=== PATIENT | male | born 1970 | race Caucasian/White ===

== ENCOUNTER 2023-11-08 14:00 | Outpatient (OUT) | payer SELFPAY | END 2023-11-08 14:01 | disposition home or self-care (01) | LOC: PST 14:00 | PROVIDERS: Visit Provider Surgery | DX: Z01.818 Encounter for other preprocedural examination (principal); D50.9 Iron deficiency anemia, unspecified; R10.13 Epigastric pain ==

== ENCOUNTER 2023-11-16 06:31 | Day surgery (SDC) | payer OTHER, SELFPAY ==
--- OUTSIDE RECORDS SUMMARY | 2023-11-16 06:36 | XMS_ITS | CCD ---
Author Organization [facility] Care Team Providers Care Prop Drawer Name Role Phone Charito Beckford MD Primary Care Provider TONG NICHOLE Attending Unavailable CHARITO BECKFORD Referring Unavailable CHARITO BECKFORD Primary Care Unavailable CHARITO BECKFORD Attending Unavailable Medications Current Medications Medication Drug Class(es) Dates Sig (Normalized) Sig (Original) apixaban 5 mg oral tablet (3 sources) Factor Xa Inhibitor Start: 07-20-2023 End: 07-20-2023 take 1 tablet by mouth in the morning, then take 1 tablet by mouth at bedtime apixaban (ELIQUIS) 5 mg tablet Indications: Multiple subsegmental pulmonary emboli without acute cor pulmonale (CMS-HCC) Take 1 tablet (5 mg total) by mouth in the morning and 1 tablet (5 mg total) before bedtime. 60 tablet 2 07/20/2023 Active ferrous sulfate 325 mg oral tablet (1 source) Start: 07-21-2023 take 1 tablet by mouth in the morning, then take 1 tablet by mouth at mealtime ferrous sulfate 325 (65 FE) mg tablet Take 1 tablet (325 mg total) by mouth in the morning and 1 tablet (325 mg total) in the evening. Take with meals. 60 tablet 2 07/21/2023 Active Problems Active Problems Problem Classification Problem Date Documented Da te Episodic/Chronic Abdominal pain (1 source) Epigastric pain; Translations: [Epigastric pain] Onset: 10-18-2023 Episodic Deficiency and other anemia (1 source) Microcytic anemia; Translations: [Iron deficiency anemia, unspecified] 07-20-2023 Episodic Deficiency and other anemia (1 source) Iron deficiency anemia, unspecified; Translations: [Iron deficiency anemia, unspecified] Onset: 10-18-2023 Episodic Deficiency and other anemia (1 source) Anemia Onset: 10-18-2023 Episodic Pulmonary heart disease (1 source) Pulmonary embolism; Translations: [Multiple subsegmental pulmonary emboli without acute cor pulmonale] 07-20-2023 Episodic Unclassified (1 source) Multiple subsegmental pulmonary emboli without acute cor pulmonale; Translations: [Multiple subsegmental pulmonary emboli without acute cor pulmonale] Onset: 07-20-2023 Unclassified (1 source) New patient Onset: 07-20-2023 Past or Other Problems Problem Classification Problem Date Documented Da te Episodic/Chronic Mood disorders (2 sources) Mood disorders Onset: 07-20-2023 07-20-2023 Results Test Name Value Interpretation Reference Range Facil itchristophe CNOVon 01-11-2019 CNOV Office Visit (EXPUSQ) PINEDA GRACIA ([id number]) 1970 M Date Time Provider Department 01/11/19 11:45 AM TERESA HOLLIS) EXPUSQ During your visit today, we recorded the following information about you: Temperature Pulse Respiration Blood pressure 97.5 degrees 101/minute 18/minute 110/83 Weight 108.9 kg Teresa Hollis PA-C 01/11/2019 12:20 PM Signed HPI 48 yo healthy M presents with onset of diarrhea yesterday. 10 episodes of watery yellow/brown diarrhea throughout the day. 2-3 episodes today. Was in [place] for 3 days, returned 3 days ago. Drank their tap water and ate chicken and beef tortillas, veggies, and fruit. Also with nausea yesterday which has resolved today. Overall feeling weak. Drinking plenty of fluids, not eating much. Denies any abdominal pain, bloody or mucousy stools, vomiting, fever, chills, sweats, or lightheadedness. Hx of similar issues with traveling for which he has been treated with cipro with good relief. No recent antibiotics or hospitalizations. No OTC meds tried. ALLERGIES No Known Allergies No past medical history on file. No current outpatient medications on file. No current facility-administere d medications for this visit. Review of Systems Constitutional: Negative for chills, diaphoresis, fatigue and fever. Gastrointestinal: Positive for diarrhea and nausea (resolved today ). Negative for abdominal distention, abdominal pain, anal bleeding, blood in stool and vomiting. Musculoskeletal: Negative for myalgias. Neurological: Positive for weakness. Negative for dizziness and light-headedness. Physical Exam Constitutional: He appears well-developed and well-nourished. Non-toxic appearance. He does not have a sickly appearance. He does not appear ill. No distress. HENT: Head: Normocephalic and atraumatic. Mouth/Throat: Oropharynx is clear and moist. Mucous membranes are not dry. Eyes: Conjunctivae and EOM are normal. Neck: Normal range of motion. Cardiovascular: Regular rhythm, S1 normal, S2 normal and normal heart sounds. Tachycardia present. HR around 100 Pulmonary/Chest: Effort normal and breath sounds normal. No accessory muscle usage. No respiratory distress. Abdominal: Soft. Normal appearance. He exhibits no distension and no mass. Bowel sounds are increased. There is no tenderness. There is no rigidity and no guarding. Musculoskeletal: Normal range of motion. Neurological: He is alert. Skin: Skin is warm and dry. He is not diaphoretic. Psychiatric: He has a normal mood and affect. Vitals reviewed. BP 110/83 (BP Site: Left Arm, BP Position: Sitting, BP Cuff Size: Regular Adult) Pulse 101 Temp 36.4 ?C (97.5 ?F) (Oral) Resp 18 Wt 108.9 kg (240 lb) SpO2 97% ASSESSMENT/PLAN: 1. Traveler's diarrhea - ICD9: 009.2, ICD10: A09 - Onset of diarrhea yesterday after returning from [place]. Drank their water. 10 episodes of diarrhea yesterday, which has continued into today. No abdominal pain, fever, or bloody stools. Tolerating oral fluids well. Well appearing. Stable vitals - borderline tachy. Moist mucous membranes. Increased bowel sounds but abdomen is soft and non tender. Discussed supportive care with fluids and rest. Imodium prn. BRAT diet. Generally this resolves on it's own with just supportive care - discussed this with him but he is requesting antibiotics as he is traveling and suppose to leave for [place] tomorrow and the diarrhea is an inconvenience for his traveling plans. Discussed potential side effects of cipro such as tendon/ligament/join t issues, but usually occurring with prolonged use. Advised to follow up with his PCP in 3 days if not improving. ER for any abdominal pain, bloody stools, fever, or signs of dehydration discussed - CIPROFLOXACIN 500 MG TABLET EDWIN Serrano PA-C 01/11/2019 12:02 PM Signed Follow up with your doctor in 3 days if not improving Plenty of fluids Imodium as needed BRAT diet What is travelers' diarrhea?Traveler s' diarrhea is runny or watery bowel movements in people who are traveling. It is usually caused by bacteria but can also be caused by a virus or parasite. You are more likely to get travelers' diarrhea if you travel in: ?[place] (except [place] ?[place], and [place] ?Countries around the [place], including [place] What are the symptoms of travelers' diarrhea?The main symptom is runny or watery bowel movements. These usually start about 4 to 14 days after arriving. Other symptoms can include: ?Feeling sick ?Loss of appetite ?Cramps in the lower belly ?Nausea and vomiting ?Fever ?Gas and bloating ? Feeling like the belly is full, with pain in the middle or top of the belly. ?Blood in the bowel movements ?Feeling as though you need have a bowel movement even if you just did, or like you need to get to the toilet in a hurry Travelers' diarrhea usually lasts 1 to 5 days, but some people are sick for a week or longer. Should I see a doctor or nurse?If your doctor or nurse gave you antibiotics to take in case you got diarrhea, you can take them instead of going to a doctor or nurse in another country. But you might need to see a doctor or nurse if: ?You are sick for 10 to 14 days or longer ?You have a fever of 102?F (40?C) or higher ?You have severe belly pain ?You have bloody diarrhea ?The antibiotics you took did not help Will I need tests?Probably not. If you see a doctor or nurse, he or she will ask where you traveled and what you did. If the doctor thinks a certain type of bacteria or parasite might be causing the diarrhea, he or she might ask for a bowel movement sample. Testing the sample can sometimes show the cause of the diarrhea. But this is not usually needed. How is travelers' diarrhea treated?The most important treatment is getting enough fluid. That's because diarrhea can cause the body to lose fluid. Adults with mild diarrhea can drink lots of fluids with water, salt, and sugar. Soup broth and water mixed with juice are good choices. If you are drinking enough, your urine will look light yellow or almost clear. If you have very frequent diarrhea, you can drink an oral rehydration solution. You can buy this in a packet at the pharmacy. Mix it with bottled or boiled drinking water. Other treatments are not necessary for everyone. They might include: ?Antibiotics ? These medicines fight infections. ?Medicines that ease diarrhea ? These medicines include loperamide (brand name: Imodium), diphenoxylate-atropi ne (sample brand name: Lomotil), and bismuth subsalicylate (sample brand names: Pepto-Bismol, Kaopectate). They can help, but they can also cause other health problems. Bismuth salicylate might not be safe for women or people who take aspirin for another condition. You can take loperamide or diphenoxylate if you have mild diarrhea. If you have very bad diarrhea, you should only take loperamide or diphenoxylate if you are also taking antibiotics. You should stop loperamide or diphenoxylate if your symptoms get worse when you take them. Can travelers' diarrhea be prevented?You can reduce your chances of getting travelers' diarrhea by being careful about what and how you eat and drink. While you are traveling: ?Do not drink tap water. Drink bottled carbonated drinks, beer, wine, or hot tea or coffee instead. [place] your teeth with bottled water. ?Do not use ice in drinks. Ice is usually made from tap water. ?Do not eat food from carts or stands in the street. ?Do not eat sauces set out on restaurant tables. These include salsa and ketchup. ?Do not eat fresh foods at room temperature. These include guacamole, fruit or chicken salads, and buffet food on a steam table. ?Do not eat foods or drinks made with unpasteurized milk. ?Ask for drinks in the bottle, without ice. If you drink from a glass, use a straw. ?Do not eat fruits unless they have a peel and you have peeled them yourself. ?Make sure meat and seafood are well done and eggs have a firm yolk. If you can't find bottled water or soft drinks, you can make your drinking water safe by doing one of the following: ?Boiling it for 3 minutes (let it cool before drinking) ?Adding 5 drops of tincture of iodine to 4 cups of water and waiting 30 minutes ? Tincture of iodine is a liquid you can buy at most pharmacies or [employer] stores. ?Using a water treatment filter from a [employer] or [employer] store Wash your hands after going to the bathroom, changing diapers, blowing your nose, touching animals, or taking out the trash. If you have a serious health condition, travelers' diarrhea could cause you to lose too much water. This can be dangerous and even cause . If you are going on a trip, talk to your doctor or nurse ahead of time. He or she might give you antibiotics to take while you are traveling. BRAT DIET (may eat any of the following as tolerated) Bananas Applesauce [place] Saltine Crackers Animal Crackers Pretzels Oatmeal Unsweetened Dry Cereal (Rice Krispies, Cheerios) Plain Baked or Boiled Potato Plain White Rice Plain Noodles All clear liquid listed below CLEAR LIQUID DIET (need to drink 2 ounces total every half hour) Broth Jello Popsicles Pedialyte Gatorade NO Juices NO Milk NO Dairy Products Call if urine output is decreased or he develops dry mucous membranes, or lethargy. Referring Provider: SELF [[id number]] Allergies As of Date: 01/11/2019 (No Known Allergies) Date Reviewed: 01/11/2019 Reviewed by: Teresa Nevarez) Telma - Fully Assessed Reason for Visit: diarrhea/nausea [Other] Cmt: just came back into the [place] ago and issues started yesterday Reason For Visit History Recorded Primary Visit Diagnosis:Traveler's diarrhea [A09] Order(s):ciprofloxac in HCl (CIPRO) 500 mg tabletTake 1 tablet by mouth twice daily for 3 days.Disp: 6 tabletRfl: 0 Prescriptions as of 01/11/2019 Sig: CIPROFLOXACIN 500 MG TABLET Take 1 tablet by mouth twice * Problem List As Of Date: 01/11/2019 (None) Other instructions from your clinician: Follow up with your doctor in 3 days if not improving Plenty of fluids Imodium as needed BRAT diet What is travelers' diarrhea?Traveler s' diarrhea is runny or watery bowel movements in people who are traveling. It is usually caused by bacteria but can also be caused by a virus or parasite. You are more likely to get travelers' diarrhea if you travel in: ?[place] (except [place]) ?[place], and [place] ?Countries around the [place], including [place] ?[place] What are the symptoms of travelers' diarrhea?The main symptom is runny or watery bowel movements. These usually start about 4 to 14 days after arriving. Other symptoms can include: ?Feeling sick ?Loss of appetite ?Cramps in the lower belly ?Nausea and vomiting ?Fever ?Gas and bloating ? Feeling like the belly is full, with pain in the middle or top of the belly. ?Blood in the bowel movements ?Feeling as though you need have a bowel movement even if you just did, or like you need to get to the toilet in a hurry Travelers' diarrhea usually lasts 1 to 5 days, but some people are sick for a week or longer. Should I see a doctor or nurse?If your doctor or nurse gave you antibiotics to take in case you got diarrhea, you can take them instead of going to a doctor or nurse in another country. But you might need to see a doctor or nurse if: ?You are sick for 10 to 14 days or longer ?You have a fever of 102?F (40?C) or higher ?You have severe belly pain ?You have bloody diarrhea ?The antibiotics you took did not help Will I need tests?Probably not. If you see a doctor or nurse, he or she will ask where you traveled and what you did. If the doctor thinks a certain type of bacteria or parasite might be causing the diarrhea, he or she might ask for a bowel movement sample. Testing the sample can sometimes show the cause of the diarrhea. But this is not usually needed. How is travelers' diarrhea treated?The most important treatment is getting enough fluid. That's because diarrhea can cause the body to lose fluid. Adults with mild diarrhea can drink lots of fluids with water, salt, and sugar. Soup broth and water mixed with juice are good choices. If you are drinking enough, your urine will look light yellow or almost clear. If you have very frequent diarrhea, you can drink an oral rehydration solution. You can buy this in a packet at the pharmacy. Mix it with bottled or boiled drinking water. Other treatments are not necessary for everyone. They might include: ?Antibiotics ? These medicines fight infections. ?Medicines that ease diarrhea ? These medicines include loperamide (brand name: Imodium), diphenoxylate-atropi ne (sample brand name: Lomotil), and bismuth subsalicylate (sample brand names: Pepto-Bismol, Kaopectate). They can help, but they can also cause other health problems. Bismuth salicylate might not be safe for women or people who take aspirin for another condition. You can take loperamide or diphenoxylate if you have mild diarrhea. If you have very bad diarrhea, you should only take loperamide or diphenoxylate if you are also taking antibiotics. You should stop loperamide or diphenoxylate if your symptoms get worse when you take them. Can travelers' diarrhea be prevented?You can reduce your chances of getting travelers' diarrhea by being careful about what and how you eat and drink. While you are traveling: ?Do not drink tap water. Drink bottled carbonated drinks, beer, wine, or hot tea or coffee instead. [place] your teeth with bottled water. ?Do not use ice in drinks. Ice is usually made from tap water. ?Do not eat food from carts or stands in the street. ?Do not eat sauces set out on restaurant tables. These include salsa and ketchup. ?Do not eat fresh foods at room temperature. These include guacamole, fruit or chicken salads, and buffet food on a steam table. ?Do not eat foods or drinks made with unpasteurized milk. ?Ask for drinks in the bottle, without ice. If you drink from a glass, use a straw. ?Do not eat fruits unless they have a peel and you have peeled them yourself. ?Make sure meat and seafood are well done and eggs have a firm yolk. If you can't find bottled water or soft drinks, you can make your drinking water safe by doing one of the following: ?Boiling it for 3 minutes (let it cool before drinking) ?Adding 5 drops of tincture of iodine to 4 cups of water and waiting 30 minutes ? Tincture of iodine is a liquid you can buy at most pharmacies or [employer]. ?Using a water treatment filter from a [employer] or sports store Wash your hands after going to the bathroom, changing diapers, blowing your nose, touching animals, or taking out the trash. If you have a serious health condition, travelers' diarrhea could cause you to lose too much water. This can be dangerous and even cause . If you are going on a trip, talk to your doctor or nurse ahead of time. He or she might give you antibiotics to take while you are traveling. BRAT DIET (may eat any of the following as tolerated) Bananas Applesauce [place] Saltine Crackers Animal Crackers Pretzels Oatmeal Unsweetened Dry Cereal (Rice Krispies, Cheerios) Plain Baked or Boiled Potato Plain White Rice Plain Noodles All clear liquid listed below CLEAR LIQUID DIET (need to drink 2 ounces total every half hour) Broth Jello Popsicles Pedialyte Gatorade NO Juices NO Milk NO Dairy Products Call if urine output is decreased or he develops dry mucous membranes, or lethargy. Prescriptions ordered this encounter Disp Refills Start End CIPROFLOXACIN 500 MG TABLET 6 ta* 0 01/11/2019 01/14/2019 Route: ORAL Sig: Take 1 tablet by mouth twice daily for 3 days. Encounter Status:Closed by TERESA HOLLIS PAC on 01/11/19 [facility] PROGRESSon 01-11-2019 PROGRESS HNO ID: [id number] Author: Teresa Nevarez) Telma Service: ? Author Type: Physician Block Handler Type: Progress Notes Filed: 01/11/2019 12:20 PM Note Text: HPI 48 yo healthy M presents with onset of diarrhea yesterday. 10 episodes of watery yellow/brown diarrhea throughout the day. 2-3 episodes today. Was in [place] for 3 days, returned 3 days ago. Drank their tap water and ate chicken and beef tortillas, veggies, and fruit. Also with nausea yesterday which has resolved today. Overall feeling weak. Drinking plenty of fluids, not eating much. Denies any abdominal pain, bloody or mucousy stools, vomiting, fever, chills, sweats, or lightheadedness. Hx of similar issues with traveling for which he has been treated with cipro with good relief. No recent antibiotics or hospitalizations. No OTC meds tried. ALLERGIES No Known Allergies No past medical history on file. No current outpatient medications on file. No current facility-administere d medications for this visit. Review of Systems Constitutional: Negative for chills, diaphoresis, fatigue and fever. Gastrointestinal: Positive for diarrhea and nausea (resolved today ). Negative for abdominal distention, abdominal pain, anal bleeding, blood in stool and vomiting. Musculoskeletal: Negative for myalgias. Neurological: Positive for weakness. Negative for dizziness and light-headedness. Physical Exam Constitutional: He appears well-developed and well-nourished. Non-toxic appearance. He does not have a sickly appearance. He does not appear ill. No distress. HENT: Head: Normocephalic and atraumatic. Mouth/Throat: Oropharynx is clear and moist. Mucous membranes are not dry. Eyes: Conjunctivae and EOM are normal. Neck: Normal range of motion. Cardiovascular: Regular rhythm, S1 normal, S2 normal and normal heart sounds. Tachycardia present. HR around 100 Pulmonary/Chest: Effort normal and breath sounds normal. No accessory muscle usage. No respiratory distress. Abdominal: Soft. Normal appearance. He exhibits no distension and no mass. Bowel sounds are increased. There is no tenderness. There is no rigidity and no guarding. Musculoskeletal: Normal range of motion. Neurological: He is alert. Skin: Skin is warm and dry. He is not diaphoretic. Psychiatric: He has a normal mood and affect. Vitals reviewed. BP 110/83 (BP Site: Left Arm, BP Position: Sitting, BP Cuff Size: Regular Adult) Pulse 101 Temp 36.4 ?C (97.5 ?F) (Oral) Resp 18 Wt 108.9 kg (240 lb) SpO2 97% ASSESSMENT/PLAN: 1. Traveler's diarrhea - ICD9: 009.2, ICD10: A09 - Onset of diarrhea yesterday after returning from [place]. Drank their water. 10 episodes of diarrhea yesterday, which has continued into today. No abdominal pain, fever, or bloody stools. Tolerating oral fluids well. Well appearing. Stable vitals - borderline tachy. Moist mucous membranes. Increased bowel sounds but abdomen is soft and non tender. Discussed supportive care with fluids and rest. Imodium prn. BRAT diet. Generally this resolves on it's own with just supportive care - discussed this with him but he is requesting antibiotics as he is traveling and suppose to leave for [place] tomorrow and the diarrhea is an inconvenience for his traveling plans. Discussed potential side effects of cipro such as tendon/ligament/join t issues, but usually occurring with prolonged use. Advised to follow up with his PCP in 3 days if not improving. ER for any abdominal pain, bloody stools, fever, or signs of dehydration discussed - CIPROFLOXACIN 500 MG TABLET Teresa Hollis PA-C [facility] Vital Signs Date Time Vital Sign Value Performing Clinician Padmini patel 07-20-2023 09:44-0500 Body height 182.9 cm Charito Beckford MD Work Phone: [facility] 07-20-2023 09:44-0500 Body mass index (BMI) [Ratio] 33.5 kg/m2 Charito Beckford MD Work Phone: [facility] 07-20-2023 09:44-0500 Body weight 112.04 kg Charito Beckford MD Work Phone: [facility] 07-20-2023 09:44-0500 Diastolic blood pressure 79 mm[Hg] Charito Beckford MD Work Phone: [facility] 07-20-2023 09:44-0500 Heart rate 72 /min [facility] 07-20-2023 09:44-0500 Systolic blood pressure 114 mm[Hg] Charito Beckford MD Work Phone: [facility] Encounters Encounter Date Encounter Type Care Provider Facility Start: 10-18-2023 End: 10-18-2023 ambulatory TONG NICHOLE [facility] Start: 07-21-2023 Orders Only Charito augustin MD Work Phone: [facility] Start: 07-20-2023 End: 07-20-2023 ambulatory CHARITO BECKFORD [facility] Start: 07-20-2023 End: 07-20-2023 Office outpatient new 45 minutes Charito Beckford MD Work Phone: [facility] Comment on above: Multiple subsegmenta l pulmonary emboli without acute cor pulmonale (CMS-HCC) (Primary Dx); Microcytic anemia Procedures Date Procedure Procedure Detail Performing Clinician Start: 07-20-2023 Adult depression screening assessment Charito Beckford MD Work Phone: Plan of Treatment Date Care Activity Detail Author Start: 07-20-2024 Adult BMI Screening Adult BMI Screen ing [facility] Start: 07-20-2024 Depression Screening Depression Scre ening [facility] Start: 07-20-2024 Tobacco Screening Tobacco Screening [facility] Start: 01-28-2023 Influenza vaccination Influenza Vacc ine [facility] Start: 2020 Administration of varicella zoster vaccine Zoster (Shingles) Vaccine (1 of 2) [facility] Start: 1989 DTaP,Tdap and Td Vac cines (1 - Tdap) DTaP,Tdap and Td Vaccines (1 - Tdap) [facility] Start: 1988 Adult BMI Follow Up Plan Adult BMI Follow Up Plan [facility] End: 07-20-2024 Ferritin [Mass/volume] in Serum or Plasma Ferritin Lab Routine Microcytic anemia 1 Occurrences starting 07/20/2023 until 07/20/2024 [facility] [facility] Work Phone: Comment on above: 1 Occurrences starti ng 07/20/2023 until 07/20/2024 End: 07-20-2024 Iron and TIBC Iron and TIBC Lab Routine Microcytic anemia 1 Occurrences starting 07/20/2023 until 07/20/2024 [facility] Comment on above: 1 Occurrences starti ng 07/20/2023 until 07/20/2024 Payers Date Payer Category Payer Self-pay REFERENCED BASED OR [employer] SHARING (SELFPAY) ALLIED BENEFIT (RB-SELFPAY) [id number] 2023-Present [phone] [address] [place] [address] [id number] 2023 Self-pay [id number] 1970 Unknown [id number] 1970 Unknown [id number] Social History Date Type Detail Facility Start: [facility] Start: 07-20-2023 Tobacco use and exposure Smokeless tobacco non-user [facility] Start: 07-20-2023 Alcohol intake Current drinke r of alcohol (finding) [facility] Start: 11-08-2018 End: 07-20-2023 History of Social function [facility] Start: 11-08-2018 End: 07-20-2023 Tobacco use panel [facility] Adolescent depressio n screening assessment 0 [facility] Start: 1970 Sex Assigned At Not on file P [facility] History of Present illness Narrative 07-20-2023 Charito Beckford MD - 07/20/2023 9:30 AM EST Note Date & Type Note Facility 07-20-2023 History of Presen t illness Narrative Subjective Patient ID: Pineda Gracia is a 52 y.o. male. 52 years old. He has not had a primary provider since he saw my father as a child. 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 He spends the winter on a boat in the [place]. He noted calf pain and then SOB with near syncope and recognized those symptoms. He was many hours from a hospital but the next day was able to make it to [facility] where CT demonstrated bilateral PE. He was noted to have microcytic anemia and he notes that he had iron deficiency in 2017 with negative endoscopies. The discharge summary he has with him shows some labs results but not iron studies. He is in room air, denies SOB, tolerating Eliquis. Denies black or bloody stools. Family history is not remarkable for clotting issues. The following portions of the patient's history were reviewed and updated as appropriate: allergies, current medications, past family history, past medical history, past social history, past surgical history, and problem list. Review of Systems Objective Physical Exam Constitutional: Appearance: Normal appearance. Comments: BP normal. Cardiovascular: Rate and Rhythm: Normal rate and regular rhythm. Heart sounds: No murmur heard. Pulmonary: Effort: Pulmonary effort is normal. Breath sounds: Normal breath sounds. Musculoskeletal: Right lower leg: No edema. Left lower leg: No edema. Neurological: Mental Status: He is alert. Assessment/Plan He will remain permanently on Eliquis. He will have iron studies to confirm low iron and if low, he will begin supplements. He needs to recover his boat and get it back to this country and that may take till mid August. He should probably then have repeat endoscopies. 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 Diagnoses and all orders for this visit: Multiple subsegmental pulmonary emboli without acute cor pulmonale (CMS-HCC) - apixaban (ELIQUIS) 5 mg tablet; Take 1 tablet (5 mg total) by mouth in the morning and 1 tablet (5 mg total) before bedtime. Microcytic anemia - Ferritin; Future - Iron and TIBC; Future documented in this encounter [facility] Evaluation note Note Date & Type Note Facility Evaluation note Diagnosis Multiple subsegmental pulmonary emboli without acute cor pulmonale (CMS-HCC)- Primary Microcytic anemia Unspecified iron deficiency anemia documented in this encounter [facility] Instructions Note Date & Type Note Facility Instructions Not on filedocumented in this en counter [facility] Instructions Note Date & Type Note Facility Instructions Not on filedocumented in this en counter [facility] Summary Purpose Family History No Family History Records FoundNo Family History Records Found Advance Directives No Advanced Directives Records FoundNo Advanced Directives Records Found Reason for Referral Specialty Diagnoses / Procedures Referred By Contac t Referred To Contact Diagnoses Multiple subsegmental pulmonary emboli without acute cor pulmonale ([facility]) Charito Beckford MD [address] [place] [address], [address] [place] [address] Referral ID Status Reason Start Date Expiration Date V isits Requested Visits Authorized [id number] Pending Review 1 1 Additional Source Comments (unrecognized sect ion and content) No Status Records FoundNo Status Records Found INFORMATION SOURCE (unrecogn ized section and content) DATE CREATED AUTHOR 01/11/2019 [facility] DATE CREATED AUTHOR AUTHOR'S ORGANIZ ATION 10/20/2023 [facility] Reason for Visit (unrecogniz ed section and content) Reason Comments New patient No previous DrPrudencio, he lived in [place] DVT on Jul 04 in [facility] Is on Eliqu is bid Care Teams (unrecognized sec tion and content) Prop Drawer Relationship Specialty Start Date End Date Charito Beckford MD [address] [place] [address], [address] [place] [address] PCP - General Pediatrics 07/20/23 Prop Drawer Relationship Specialty Start Date End Date Charito Beckford MD [address] [place] [address], [address] [place] [address] PCP - General Pediatrics 07/20/23 FOR RECORDS PERTAINING TO PATIENTS WHO ARE OR HAVE BEEN ENROLLED IN A CHEMICAL DEPENDENCY/SUBSTANCEABUSE PROGRAM, SOME INFORMATION MAY BE OMITTED. This clinical summary was aggregated from multiple sources. Caution should be exercised in using it in the provision of clinical care. This summary normalizes information from multiple sources, and as a consequence, information in this document may materially change the coding, format and clinical context of patient data. In addition, data may be omitted in some cases. CLINICAL DECISIONS SHOULD BE BASED ON THE PRIMARY CLINICAL RECORDS. [facility] Elias Borges [facility]. provides no warranty or guarantee of the accuracy or completeness of information in this document.
[2023-11-16 06:43] VITALS: BMI 32.5
[2023-11-16 06:52] VITALS: BP 130/77; PULSE 51; TEMP 36.1; O2SAT 98
[2023-11-16] MEDS: LACTATED RINGER'S SOLUTION 1,000 ML 50 ML IV (07:09)
--- NOTE | 2023-11-16 07:13 | P.GSPRC_ITS ---
Date of procedure: 11/16/23 Indications for Procedure: anemia Pre-op diagnosis: anemia Post-op diagnosis: other (Rahman's esophagus GE junction and erosive esophagitis/diverticulosis sigmoid and descending colon/moderate sized hiatal hernia from 35 to 40 cm) Procedure: EGD with biopsy antrum and distal esophagus Colonoscopy Findings: Same as above Anesthesia: MAC Surgeon: Moisés Rodriguez Procedure Summary: PROCEDURE: The patient was taken to the Endoscopy Suite, placed in the left lateral recumbent position, given IV sedation as above. The Olympus EGD scope was advanced under direct visualization to the posterior pharynx esophagus into the stomach through the pylorus of the first second third and fourth portions of the duodenum. There were no ulcers polyps or tumors seen in the duodenum. The scope was returned to the stomach retroflexed on itself look at the GE junction which was normal. There were no ulcers polyps or tumors seen in the stomach and random biopsies of the antrum were taken. The scope was then withdrawn to the distal esophagus with findings consistent with a hiatal hernia from 40 to 45 cm moderate sized and then he has Rahman's esophagus as well as erosive esophagitis. Multiple biopsies were taken. The rest of the esophagus was normal. The scope was removed from the mouth. A rectal digital exam was performed. The sphincter tone was found to be normal. Prostate was smooth nonenlarged without nodules. No rectal masses were appreciated. The Olympus video colonoscope was advanced under direct visualization to the rectum, sigmoid colon, descending colon, transverse colon and ascending colon to the ileocecal valve. The underside of the valve was seen. Appendiceal lumen was visualized. The scope was slowly withdrawn with air being desufflated as it was withdrawn. No gross tumors or polyps were seen. Patient had scattered diverticulosis small to medium sized pockets seen in the descending and sigmoid colon. The patient tolerated the procedure well and went to the Recovery Area in satisfactory condition. I recommend patient have feldman rveillance EGD in 3 years and consultation for possible hiatal hernia repaired due to chronic esophagitis and Rahman's esophagus which increases his risk for esophageal cancer. Estimated blood loss (mL): 3 Complications: No Condition: stable Disposition: PACU
[2023-11-16 07:54] VITALS: BP 113/75; PULSE 52; O2SAT 94
[2023-11-16 08:10] VITALS: BP 106/72; PULSE 50; O2SAT 95
[2023-11-16 08:25] VITALS: BP 110/68; PULSE 52; O2SAT 97
[2023-11-17 15:31] LABS: H Pylori Tissue, Urease Negative
== END 2023-11-16 08:28 | disposition home or self-care (01) ==
PROVIDERS: PCP Internal Medicine; Visit Provider Surgery
PROC: (CPT 00813; principal; 2023-11-16 07:30)
DX: D50.9 Iron deficiency anemia, unspecified (principal); K22.70 Barrett's esophagus without dysplasia; K44.9 Diaphragmatic hernia without obstruction or gangrene; K57.30 Diverticulosis of large intestine without perforation or abscess without bleeding; Z86.718 Personal history of other venous thrombosis and embolism; Z79.01 Long term (current) use of anticoagulants
CPT/HCPCS: 00813; 43239; 45378; 87077; 88305; 99999; J2704